=== PATIENT | female | born 1990 | race Caucasian/White ===

== ENCOUNTER 2019-11-11 13:11 | Emergency (ER) | payer OTHER ==
[~2019-11-11] VITALS: Ht 165.1 cm; Wt 69.9 kg
[2019-11-11 13:26] VITALS: Ht 165.1 cm; Wt 69.9 kg
[2019-11-11 16:35] VITALS: BP 118/60
== END 2019-11-11 16:35 | disposition home or self-care (01) ==
LOC: ED 13:11
DX: J06.9 Acute upper respiratory infection, unspecified (principal); J45.909 Unspecified asthma, uncomplicated
CPT/HCPCS: Q0092